=== PATIENT | female | born 1985 | race Caucasian/White ===

== ENCOUNTER 2016-09-18 12:23 | Emergency (ER) | payer BC ==
[~2016-09-18] VITALS: Ht 170.2 cm; Wt 129.0 kg
[~2016-09-18 12:23] MED LIST: ACETAMINOPHEN500 MG PO
[2016-09-18 13:38] LABS: HEMATOCRIT 37.3 % (36.0-46.0); MCHC 32.2 G/DL (30.0-36.0); MCV 83.8 FL (83-99); MEAN PLAT.VOLUME 9.7 uM^3 (9.5-12.4); PLATELET COUNT 301 K/uL (156-360); RBC DIS.WIDTH-CV 14.7 % (11.8-14.6); RED BLOOD COUNT 4.45 M/uL (3.80-5.20); WHITE BLOOD COUNT 8.1 K/uL (4.1-10.2)
[2016-09-18 13:46] LABS: CHLORIDE 105 mEq/L (99-109); POTASSIUM 4.5 mEq/L (3.7-5.4); SODIUM 138 mEq/L (136-147)
[2016-09-18 13:48] LABS: GLUCOSE 86 mg/dL (70-99)
[2016-09-18 13:49] LABS: ANION GAP 9 MEQ/L (2-14)
[2016-09-18 13:52] LABS: GFR ESTIMATE (CALCULATED) > 59 mL/min/
[2016-09-18 13:53] LABS: UREA NITROGEN (BUN) 8 mg/dL (9-23)
[2016-09-18] MEDS ORDERED: ANTIVERT25 MG PO (15:50)
[2016-09-18 16:09] VITALS: BP 135/81
== END 2016-09-18 16:11 | disposition home or self-care (01) ==
LOC: EME 12:23
DX: R42 Dizziness and giddiness (principal); Z88.0 Allergy status to penicillin; Z91.040 Latex allergy status
CPT/HCPCS: 70450; 80048; 85027; 93005; 99281; 99284